=== PATIENT | female | born 1945 | race Caucasian/White ===

== ENCOUNTER 2017-01-26 14:35 | Emergency (ER) | payer OTHER ==
[~2017-01-26 14:35] MED LIST: COL100 PO; HYDROCORTISONE2.52 OS; LAC PO; LEVAQUIN750 MG PO; MEDDP PO; NORCO1 TA2 PO; VALTREX1 GM PO
[2017-01-26 16:53] VITALS: BP 134/59
== END 2017-01-26 17:26 | disposition home or self-care (01) ==
LOC: ED 14:35
DX: M19.012 Primary osteoarthritis, left shoulder (principal); Z88.0 Allergy status to penicillin
CPT/HCPCS: J1100; J1885